=== PATIENT | female | born 1985 | race African-American/Black ===

== ENCOUNTER 2022-08-23 17:23 | Inpatient (IN) ==
[2022-08-23] MEDS ORDERED: OXYTOCIN/LR 20 UNIT/1,000 ML BAG IV ONE ×3 (17:34→17:56)
[2022-08-23] MEDS ORDERED: CARBOPROST TROMETHAMINE 250 MCG/ML AMP IM PRN (17:38)
[2022-08-23] MEDS ORDERED: ONDANSETRON 4 MG/2 ML VIAL IV PRN ×2 (17:38→17:56)
[2022-08-23] MEDS ORDERED: TRANEXAMIC ACID 1,000 MG in SODIUM CHLORIDE 0.9% 100 ML IV PRN (17:38)
[2022-08-23] MEDS ORDERED: METHYLERGONOVINE 0.2 MG/1 ML AMP IM PRN (17:38)
[2022-08-23] MEDS ORDERED: miSOPROStoL 200 MCG TABLET RECTAL PRN (17:38)
[2022-08-23] MEDS ORDERED: oxyCODONE/ACETAMINOPHEN 5-325 MG TABLET PO PRN ×3 (17:56→19:15)
[2022-08-23] MEDS ORDERED: MEASLES/MUMPS/RUBELLA VACCINE 0.5 ML VIAL SUBCUT ONE (17:56)
[2022-08-23] MEDS ORDERED: LANOLIN 50% CREAM 0.3 OZ TUBE TOP PRN (17:56)
[2022-08-23] MEDS ORDERED: BISACODYL 10 MG SUPP RECTAL PRN (17:56)
[2022-08-23] MEDS ORDERED: RHO(D) IMMUNE GLOBULIN 300 MCG SYRINGE IM ONE (17:56)
[2022-08-23] MEDS ORDERED: BENZOCAINE 20%/MENTHOL 0.5% SPRAY 56 GM CAN TOP PRN (17:56)
[2022-08-23] MEDS ORDERED: HYDROCORTISONE 2.5% RECTAL CREAM 30 GM TUBE TOP PRN (17:56)
[2022-08-23] MEDS ORDERED: ACETAMINOPHEN 325 MG TABLET PO PRN (17:56)
[2022-08-23] MEDS ORDERED: DIPH/TET/ACEL PERT BOOSTER VACCINE 0.5 ML VIAL IM ONE (17:56)
[2022-08-23] MEDS ORDERED: WITCH HAZEL PADS 100/JAR TOP PRN (17:56)
[2022-08-23] MEDS ORDERED: LACTATED RINGERS 1,000 ML IV SCH (18:00)
[2022-08-23 18:03] LABS: Cord Venous Blood HCO3 20.9 MMOL/L; Cord Venous Blood PCO2 42.2 MMHG; Cord Venous Blood PO2 26.1
[2022-08-23 18:34] LABS: Basophils % 0.1 % (0.0-0.8); Eosinophils # 0.1 10*3/uL (0.0-0.87); Eosinophils % 0.5 % (0.00-10.9); Hematocrit 39.2 VOL% (35.7-47.0); Hemoglobin 12.9 GM/DL (12.0-16.0); Immature Granulocytes % 0.7 %; Immature Granulocytes Absolute 0.06 #; Lymphocytes # 2.7 10*3/uL (1.4-4.0); Lymphocytes % 29.4 % (21.3-54.2); Mean Corpuscular HGB Conc 32.9 GM/DL (32-36); Mean Corpuscular Volume 88.3 FL (87-102); Mean Platelet Volume 10.6 FL (9.6-12.0); Monocytes # 0.5 10*3/uL (0.11-0.8); Monocytes % 5.9 % (1.7-12.7); Neutrophils % 63.4 % (38.7-73.9); Platelet Count 209 T/CUMM (130-400); Red Blood Count 4.44 MC/CUMM (3.8-5.5); Red Cell Distribution Width 14.5 % (9.3-17.3); White Blood Count 9.2 T/CUMM (4-12)
[2022-08-23] MEDS: oxyCODONE/ACETAMINOPHEN 5-325 MG TABLET PO PRN (19:27)
[2022-08-24] MEDS: IBUPROFEN 800 MG TABLET PO PRN ×3 (01:40→20:11)
[2022-08-24 05:33] LABS: Basophils % 0.1 % (0.0-0.8); Eosinophils # 0.1 10*3/uL (0.0-0.87); Eosinophils % 0.5 % (0.00-10.9); Hemoglobin 10.9 GM/DL (12.0-16.0); Immature Granulocytes % 0.5 %; Immature Granulocytes Absolute 0.06 #; Lymphocytes # 2.7 10*3/uL (1.4-4.0); Lymphocytes % 24.4 % (21.3-54.2); Monocytes # 0.6 10*3/uL (0.11-0.8); Monocytes % 5.6 % (1.7-12.7); Neutrophils % 68.9 % (38.7-73.9); Platelet Count 192 T/CUMM (130-400); Red Blood Count 3.75 MC/CUMM (3.8-5.5); Red Cell Distribution Width 14.2 % (9.3-17.3); White Blood Count 10.9 T/CUMM (4-12)
[2022-08-24] MEDS: DOCUSATE SODIUM 100 MG CAPSULE PO SCH ×2 (09:21→21:23)
[2022-08-24] MEDS: MULTIVITAMIN (PRENATAL) TABLET PO SCH (09:21)
[2022-08-24] MEDS: oxyCODONE/ACETAMINOPHEN 5-325 MG TABLET PO PRN (09:22)
[2022-08-25] MEDS: oxyCODONE/ACETAMINOPHEN 5-325 MG TABLET PO PRN ×2 (05:56→11:23)
[2022-08-25] MEDS: IBUPROFEN 800 MG TABLET PO PRN ×2 (05:56→11:23)
[2022-08-25] MEDS: MULTIVITAMIN (PRENATAL) TABLET PO SCH (08:44)
[2022-08-25 08:53] VITALS: BP 114/80
[2022-08-25] MEDS ORDERED: INFLUENZA VIRUS VACCINE 0.5 ML SYRINGE IM ONE (17:45)
== END 2022-08-25 13:35 | disposition home or self-care (01) | DRG 560 ==
LOC: N.LDOUT 17:23 → N.LD 17:25 → N.OB 20:30
PROVIDERS: ADMIT Obstetrics & Gynecology; ATTEND Obstetrics & Gynecology